=== PATIENT | male | born 1940 | race Caucasian/White ===

== ENCOUNTER 2024-08-03 12:57 | Inpatient (IN) | payer MEDICARE, OTHER ==
[~2024-08-03] VITALS: Ht 162.6 cm; Wt 63.5 kg
[2024-08-03] MEDS ORDERED: TAMS-3 PO (13:08)
[2024-08-03] MEDS ORDERED: MELO-105 PO (13:08)
[2024-08-03] MEDS ORDERED: CLOP75TA33 PO (13:08)
[2024-08-03] MEDS ORDERED: TRAM50TA2 PO (13:08)
[2024-08-03] MEDS ORDERED: CLON2TAB11 PO (13:08)
[2024-08-03] MEDS ORDERED: MIDO5TAB5 PO (13:08)
[2024-08-03] MEDS ORDERED: FINA5TAB11 PO (13:08)
[2024-08-03] MEDS ORDERED: MIRA25TA PO (13:08)
[2024-08-03 15:46] VITALS: BP 135/65; TEMP 98; O2SAT 99
[2024-08-03] MEDS ORDERED: MIDODRINE HCL 5 MG TABLET PO SCH (17:00)
[2024-08-03] MEDS ORDERED: METO25TA6 PO (18:16)
[2024-08-03] MEDS ORDERED: PHEN-894 PO (18:18)
[2024-08-03] MEDS ORDERED: ACETAMINOPHEN 325 MG TABLET PO PRN (18:30)
[2024-08-03] MEDS ORDERED: MAGNESIUM HYDROXIDE 30 ML LIQUID UDC PO PRN (18:30)
[2024-08-03] MEDS ORDERED: MAG HYDROX/AL HYDROX/SIMETH 30 ML LIQUID UDC PO PRN (18:30)
[2024-08-03 20:00] VITALS: BP 144/75; TEMP 97.5; O2SAT 99
[2024-08-03] MEDS: ZOLPIDEM 5 MG TABLET PO PRN (21:02)
[2024-08-03] MEDS: TAMSULOSIN HCL 0.4 MG CAP.SR.24H PO SCH (21:02)
[2024-08-03] MEDS ORDERED: QUETIAPINE FUMARATE 25 MG TABLET PO PRN (21:15)
[2024-08-04] MEDS: QUETIAPINE FUMARATE 25 MG TABLET PO PRN ×2 (00:58→20:46)
[2024-08-04 07:41] LABS: BASOPHILS # (AUTO) 0.1 K/UL (0.0-0.2); BASOPHILS % (AUTO) 1.4 % (0.0-2.0); EOSINOPHILS # (AUTO) 0.2 K/uL (0.0-0.7); EOSINOPHILS % (AUTO) 3.8 % (0.0-7.0); HEMATOCRIT 33.8 % (36.7-47.1); HEMOGLOBIN 11.9 g/dL (12.5-16.3); LYMPHOCYTES # (AUTO) 1.4 K/uL (0.8-4.8); LYMPHOCYTES % (AUTO) 33.5 % (20.5-51.5); MEAN CORPUSCULAR HEMOGLOBIN 38.2 uug (23.8-33.4); MEAN CORPUSCULAR HGB CONC 35 g/dL (32.5-36.3); MEAN CORPUSCULAR VOLUME 108.1 fL (73.0-96.2); MONOCYTES # (AUTO) 0.6 K/uL (0.1-1.30); MONOCYTES % (AUTO) 14.3 % (0.0-11.0); NEUTROPHILS # (AUTO) 1.9 K/uL (1.8-8.9); PLATELET COUNT (AUTO) 146 K/uL (152-348); RED BLOOD CELL COUNT(AUTO) 3.13 MIL/uL (4.06-5.63); RED CELL DISTRIBUTION WIDTH 13.2 % (12.1-16.2); WHITE BLOOD COUNT (AUTO) 4.1 K/uL (3.6-10.2)
[2024-08-04 07:45] LABS: DIFFERENTIAL COMMENT 1
[2024-08-04 08:01] LABS: CALCIUM 8.6 mg/dL (8.5-10.1); CARBON DIOXIDE 27 mmol/L (21-32); CHLORIDE 104 mmol/L (98-107); GLUCOSE 99 mg/dL (74-106); MAGNESIUM 2.1 mg/dL (1.8-2.4); PHOSPHOROUS 3.3 mg/dL (2.5-4.9); SODIUM SERUM 136 mmol/L (136-145); UREA NITROGEN, BLOOD 19 mg/dL (7-18)
[2024-08-04 08:05] VITALS: BP 109/53; TEMP 98; O2SAT 98
[2024-08-04 08:09] LABS: THYROID STIMULATING HORMONE 2.372 mIU/mL (0.358-3.740)
[2024-08-04] MEDS: CLOPIDOGREL 75 MG TABLET PO SCH (08:57)
[2024-08-04] MEDS: FINASTERIDE 5 MG TABLET PO SCH (08:58)
[2024-08-04] MEDS: MELOXICAM 7.5 MG TABLET PO SCH (08:58)
[2024-08-04] MEDS ORDERED: Mirabegron (Myrbetriq) 25 MG) PO SCH (09:00)
[2024-08-04] MEDS ORDERED: MIDODRINE HCL 5 MG TABLET PO SCH (09:00)
[2024-08-04] MEDS ORDERED: MISCELLANEOUS MED XX PRN (11:30)
[2024-08-04] MEDS: SERTRALINE HCL 50 MG TABLET PO SCH (12:43)
[2024-08-04] MEDS: MEMANTINE HCL 5 MG TABLET PO SCH (12:43)
[2024-08-04 16:05] VITALS: BP 96/46; TEMP 98; O2SAT 98
[2024-08-04 20:00] VITALS: BP 112/45; TEMP 97.6; O2SAT 98
[2024-08-04] MEDS: CLONAZEPAM 0.5 MG TABLET PO PRN (21:16)
[2024-08-05] MEDS: TRAMADOL HCL 50 MG TABLET PO PRN (00:59)
[2024-08-05 08:36] VITALS: BP 101/41; TEMP 98; O2SAT 98
[2024-08-05] MEDS: METOPROLOL TARTRATE 25 MG TABLET PO SCH (08:41)
[2024-08-05] MEDS ORDERED: METHYL SALICYLATE/MENTHOL CREAM 28 GM TUBE TP PRN (09:00)
[2024-08-05 15:38] VITALS: BP 90/40; TEMP 98; O2SAT 98
[2024-08-05 19:57] VITALS: BP 112/52; TEMP 98.1; O2SAT 95
[2024-08-06 08:30] VITALS: BP 102/52; TEMP 98; O2SAT 98
[2024-08-06 16:44] VITALS: BP 92/39; TEMP 98; O2SAT 98
[2024-08-06 20:00] VITALS: BP 121/57; TEMP 97.7; O2SAT 98
[2024-08-07 08:20] VITALS: BP 103/43; TEMP 97.8; O2SAT 98
[2024-08-07 08:54] VITALS: BP 103/43; TEMP 97.8; O2SAT 98
[2024-08-07] MEDS: GABAPENTIN 100 MG CAPSULE PO SCH (13:00)
[2024-08-07] MEDS: LAMOTRIGINE 25 MG TABLET PO SCH (16:44)
[2024-08-07 17:23] VITALS: BP 105/38; TEMP 98.3; O2SAT 100
[2024-08-07] MEDS ORDERED: PRED5DRO16 LEFTEYE (18:17)
[2024-08-07] MEDS ORDERED: KETO5DRO39 LEFTEYE (18:17)
[2024-08-07 19:46] VITALS: BP 138/50; TEMP 98.1; O2SAT 98
[2024-08-07] MEDS: QUETIAPINE FUMARATE 25 MG TABLET PO SCH (20:28)
[2024-08-08 08:36] VITALS: BP 136/56; TEMP 97.6; O2SAT 100
[2024-08-08] MEDS ORDERED: KETO5DRO39 LEFTEYE (10:08)
[2024-08-08] MEDS ORDERED: OFLO5DRO3 LEFTEYE (10:09)
[2024-08-08 16:29] VITALS: BP 117/59; TEMP 98; O2SAT 100
[2024-08-08 20:00] VITALS: BP 110/50; TEMP 98.2; O2SAT 100
[2024-08-09 08:54] VITALS: BP 101/49; TEMP 98.6; O2SAT 98
[2024-08-09 16:15] VITALS: BP 104/39; TEMP 98; O2SAT 97
[2024-08-09] MEDS: MEMANTINE HCL 5 MG TABLET PO SCH (18:03)
[2024-08-09 20:01] VITALS: BP 115/49; TEMP 98.2; O2SAT 98
[2024-08-09] MEDS: METOPROLOL TARTRATE 25 MG TABLET PO SCH (21:00)
[2024-08-10 07:15] LABS: BASOPHILS # (AUTO) 0.1 K/UL (0.0-0.2); BASOPHILS % (AUTO) 2.4 % (0.0-2.0); EOSINOPHILS # (AUTO) 0.1 K/uL (0.0-0.7); EOSINOPHILS % (AUTO) 2.9 % (0.0-7.0); HEMATOCRIT 33.1 % (36.7-47.1); HEMOGLOBIN 11.4 g/dL (12.5-16.3); LYMPHOCYTES # (AUTO) 1.5 K/uL (0.8-4.8); LYMPHOCYTES % (AUTO) 35.7 % (20.5-51.5); MEAN CORPUSCULAR HEMOGLOBIN 37.9 uug (23.8-33.4); MEAN CORPUSCULAR HGB CONC 35 g/dL (32.5-36.3); MEAN CORPUSCULAR VOLUME 109.4 fL (73.0-96.2); MONOCYTES # (AUTO) 0.6 K/uL (0.1-1.30); MONOCYTES % (AUTO) 14.2 % (0.0-11.0); NEUTROPHILS # (AUTO) 1.9 K/uL (1.8-8.9); NEUTROPHILS % (AUTO) 44.8 % (38.5-71.5); PLATELET COUNT (AUTO) 152 K/uL (152-348); RED BLOOD CELL COUNT(AUTO) 3.02 MIL/uL (4.06-5.63); RED CELL DISTRIBUTION WIDTH 12.8 % (12.1-16.2); WHITE BLOOD COUNT (AUTO) 4.3 K/uL (3.6-10.2)
[2024-08-10 07:28] LABS: DIFFERENTIAL COMMENT 1
[2024-08-10 07:30] VITALS: BP 114/49; TEMP 98; O2SAT 96
[2024-08-10 07:32] LABS: ALANINE AMINOTRANSFERASE 22 U/L (16-63); ALBUMIN 3.4 g/dL (3.4-5.0); ALKALINE PHOSPHATASE 92 U/L (50-136); ASPARTATE AMINOTRANSFERASE 18 U/L (15-37); CALCIUM 8.6 mg/dL (8.5-10.1); CARBON DIOXIDE 28 mmol/L (21-32); CHLORIDE 104 mmol/L (98-107); CHOLESTEROL 133 mg/dL (<200); GLUCOSE 96 mg/dL (74-106); HDL CHOLESTEROL 53 mg/dL (40-60); MAGNESIUM 2.3 mg/dL (1.8-2.4); PHOSPHOROUS 3.5 mg/dL (2.5-4.9); POTASSIUM 3.8 mmol/L (3.5-5.1); SODIUM SERUM 139 mmol/L (136-145); TOTAL PROTEIN, SERUM 6.1 g/dL (6.4-8.2); TRIGLYCERIDES 56 MG/DL (30-150); UREA NITROGEN, BLOOD 21 mg/dL (7-18)
[2024-08-10] MEDS: CYANOCOBALAMIN 1,000 MCG TABLET PO SCH (09:22)
[2024-08-10 15:49] VITALS: BP 103/64; TEMP 98; O2SAT 98
[2024-08-10 19:42] VITALS: BP 104/51; TEMP 97.9; O2SAT 96
[2024-08-11 07:30] VITALS: BP 118/51; TEMP 98.2; O2SAT 96
[2024-08-11] MEDS: LAMOTRIGINE 25 MG TABLET PO SCH (08:52)
[2024-08-11 15:46] VITALS: BP 122/72; TEMP 98.2; O2SAT 98
[2024-08-12 09:10] VITALS: BP 105/56; TEMP 98; O2SAT 98
== END 2024-08-12 14:08 | disposition home or self-care (01) | DRG 885 ==
LOC: ER 12:57 → GPS 14:27
PROVIDERS: ADMIT Psychiatry & Neurology Psychiatry; ATTEND Student in an Organized Health Care Education/Training Program
DX: F39 Unspecified mood [affective] disorder (principal); R45.851 Suicidal ideations; S61.511D Laceration without foreign body of right wrist, subsequent encounter; X78.8XXD Intentional self-harm by other sharp object, subsequent encounter; G89.29 Other chronic pain; R79.89 Other specified abnormal findings of blood chemistry; N40.0 Benign prostatic hyperplasia without lower urinary tract symptoms; E86.0 Dehydration; Z90.79 Acquired absence of other genital organ(s); I48.91 Unspecified atrial fibrillation; F17.210 Nicotine dependence, cigarettes, uncomplicated; I10 Essential (primary) hypertension; D69.6 Thrombocytopenia, unspecified; D75.89 Other specified diseases of blood and blood-forming organs; F43.23 Adjustment disorder with mixed anxiety and depressed mood; Z79.899 Other long term (current) drug therapy
CPT/HCPCS: 36415; 83735; 84100; 84153; 84443; 85025